=== PATIENT | male | born 1990 | race African-American/Black ===

== ENCOUNTER 2021-01-31 15:35 | Emergency (ER) | payer SELFPAY ==
[~2021-01-31] VITALS: Ht 185.4 cm; Wt 84.0 kg
[2021-01-31] MEDS ORDERED: NORVASC2.5 M1 PO (16:14)
[2021-01-31] MEDS ORDERED: ZPAK PO (16:58)
[2021-01-31] MEDS ORDERED: PROAIR HFA108 MCG/AC PO (16:58)
[2021-01-31] MEDS ORDERED: PREDNISONE50 MG PO (16:58)
[2021-01-31 17:02] VITALS: BP 1498/97
== END 2021-01-31 17:15 | disposition home or self-care (01) | DRG 153 ==
LOC: ED 15:35
DX: J06.9 Acute upper respiratory infection, unspecified (principal); I10 Essential (primary) hypertension; Z20.822 Contact with and (suspected) exposure to COVID-19